=== PATIENT | male | born 1955 | race Caucasian/White ===

== ENCOUNTER 2016-09-14 18:28 | Emergency (ER) | payer OTHER ==
[~2016-09-14] VITALS: Ht 175.3 cm; Wt 59.0 kg
[~2016-09-14 18:28] MED LIST: METO25 PO; MOBI7.5T PO
[2016-09-14 18:29] VITALS: BP 149/80; PULSE 61; RESP 18; TEMP 98.1; O2SAT 99
--- NOTE | 2016-09-14 19:07 | PD ---
Physical Exam Time Seen by Provider: 19:05 Narrative 60yo M c/o pain in R hip and groin area x 2 days. Jatinder injury. Denies fever, vomiting. Patient seen in triage. VS reviewed. Awaiting bed placement. Data Data Last Documented VS Vital Signs Date Time Temp Pulse Resp B/P Pulse Ox O2 Delivery O2 Flow Rate FiO2 09/14/16 18:29 98.1 61 18 149/80 99 Room Air MDM Supervised Visit with SHASHI: Elina Clarke Sep 14, 2016 19:07
--- NOTE | 2016-09-14 20:19 | PD ---
HPI Chief Complaint: Pain: Acute or Chronic Time Seen by Provider: 20:19 Travel History International Travel<30 days: No Contact w/Intl Traveler<30days: No Traveled to known affect area: No History of Present Illness HPI 60-year-old male describes pain in the right hip. At baseline it is 4-5/10. It is very painful with movement. He denies any history of trauma or injury that he can recall although he does note 3 weeks ago he twisted somehow hurt his low back. He does not believe the 2 are related. No fever reported. PFSH Past Medical History Arthritis: Yes Cardiovascular Problems: Yes (HTN) COPD: Yes Diminished Hearing: No Hypertension: Yes Musculoskeletal: Yes (HX OF BACK PAIN.) Myocardial Infarction: Yes (X2 ) Seizures: Yes (STOPPED TAKING MEDICATION YEARS AGO) Past Surgical History Neurologic Surgery: Yes (FRACTURED SKULL, STEEL PLATES IN HEAD) Social History Alcohol Use: Yes Tobacco Use: Yes (1 PK/DAILY X 40 YRS) Substance Use: Yes (MARIJUANA) Allergies-Medications (Allergen,Severity, Reaction): Coded Allergies: Penicillin (Verified Allergy, Mild, 09/14/16) Reported Meds & Prescriptions Reported Meds & Active Scripts Active Tramadol (Tramadol HCl) 50 Mg Tab 50 Mg PO Q8H PRN Reported Metoprolol Tartrate 25 mg (Metoprolol Tartrate) 25 Mg Tab 12.5 Mg PO BID Mobic (Meloxicam) 7.5 Mg Tab 7.5 Mg PO DAILY Review of Systems Except as stated in HPI: all other systems reviewed are Neg General / Constitutional: No: Fever Musculoskeletal: Positive: Pain Physical Exam Narrative GENERAL: 60 yo M, WNWD, mild distress SKIN: Warm and dry. HEAD: Atraumatic. Normocephalic. EYES: Pupils equal and round. No scleral icterus. No injection or drainage. ENT: No nasal bleeding or discharge. Mucous membranes pink and moist. NECK: Trachea midline. No JVD. CARDIOVASCULAR: Regular rate and rhythm. RESPIRATORY: No accessory muscle use. Clear to auscultation. Breath sounds equal bilaterally. GASTROINTESTINAL: Abdomen soft, non-tender, nondistended. Hepatic and splenic margins not palpable. MUSCULOSKELETAL: Passive ROM at R hip is non-tender. Minimal TTP along R greater trochanter. No pain with axial loading. NEUROLOGICAL: Awake and alert. No obvious cranial nerve deficits. Motor grossly within normal limits. Five out of 5 muscle strength in the arms and legs. Normal speech. PSYCHIATRIC: Appropriate mood and affect; insight and judgment normal. Data Data Last Documented VS Vital Signs Date Time Temp Pulse Resp B/P Pulse Ox O2 Delivery O2 Flow Rate FiO2 09/14/16 18:29 98.1 61 18 149/80 99 Room Air VS reviewed Orders Acetamin-Hydrocod 325-5 Mg ([place] 5-325 (09/14/16 20:30) Hip, Uni(Ap&Lat) W Ap Pelvis (09/14/16 ) MDM Medical Decision Making Medical Screen Exam Complete: Yes Emergency Medical Condition: Yes Medical Record Reviewed: Yes Differential Diagnosis Septic arthritis, avascular necrosis, osteoarthritis, cancer, fracture, contusion, chronic pain Narrative Course Plain films reveal no acute traumatic injury. Upon reassessment at 927pm the patient was found resting comfortably and feels better, is alert and in no distress. The patients results and examination findings were discussed. The repeat examination is unremarkable and benign. The history, exam, diagnostic testing, and current condition do not suggest any significant pathology to warrant further testing, continued ED treatment, admission, or surgical evaluation at this point. The vital signs have been stable. The patient does not have uncontrollable pain, intractable vomiting, or other significant symptoms. The patient's condition is stable and appropriate for discharge. The patient will pursue further outpatient evaluation with a primary care physician or other designated or consulting physician as indicated in the discharge instructions. The patient expressed understanding and was agreeable with this plan. Diagnosis Primary Impression: Right hip pain Referrals: [place] [facility] call for appointment Additional Instructions: You have a choice when it comes to health care, and we are glad that you chose [facility]. Hopefully, we have met your expectations on today's visit. You are welcome to return to [facility] at any time, as we are committed to meeting the health care needs of our community. Med/Other Pt SpecificInfo: Prescription(s) given Scripts Hydrocodone-Acetaminophen (Lortab)5-325 Mg Tab1-2 Tab PO Q6H PRN (PAIN SCALE 6 TO 10) #20 TAB Ref 0 Prov:Jamey Lewis MD 09/14/16 Tramadol 50 Mg Tab50 Mg PO Q8H PRN (PAIN) #20 TAB Ref 0 Prov:Jamey Lewis MD 09/14/16 Disposition: 01 DISCHARGE HOME Condition: Stable Jamey Lewis MD Sep 14, 2016 20:19
[2016-09-14] MEDS ORDERED: ACETAMINOPHEN/HYDROcodone 325 MG/5 MG TAB PO ONE (20:30)
--- NOTE | 2016-09-14 21:15 | RADRPT ---
EXAM DATE/TIME: 09/14/2016 20:44 [facility] COMPARISON: No previous studies available for comparison. INDICATIONS : Right hip pain for several days. No known injury. MEDICAL HISTORY : None. SURGICAL HISTORY : None. ENCOUNTER: Initial ACUITY: 3 days PAIN SCORE: 8/10 LOCATION: Right hip. FINDINGS: Examination of the right hip was performed with AP Pelvis. The primary and secondary trabecular nic jemima of the femoral neck is intact. There are mild degenerative changes with slight spurring. There is mild superior joint space loss and sclerosis. CONCLUSION: Mild osteoarthritic change. Robert Downing MD on September 14, 2016 at 21:12 Board Certified Radiologist. This report was verified electronically.
[2016-09-14] MEDS ORDERED: TRAM50TA PO (21:22)
[2016-09-14] MEDS ORDERED: HYDR-3533 PO (21:27)
== END 2016-09-14 21:30 | disposition home or self-care (01) ==
LOC: NEPD 18:28
DX: M25.551 Pain in right hip (principal); I10 Essential (primary) hypertension; J44.9 Chronic obstructive pulmonary disease, unspecified; I25.2 Old myocardial infarction; F17.210 Nicotine dependence, cigarettes, uncomplicated
CPT/HCPCS: 73502; 99284